=== PATIENT | male | born 1985 | race Caucasian/White ===

== ENCOUNTER 2020-07-05 21:31 | Emergency (ER) | payer SELFPAY ==
[2020-07-05 21:45] VITALS: BP 157/91; PULSE 75; RESP 18; TEMP 37; O2SAT 98; BMI 37.1
[2020-07-05 21:55] VITALS: BP 157/91; PULSE 75; RESP 18; TEMP 37; O2SAT 98
[2020-07-05] MEDS: Amoxicillin/Potassium Clav 875 MG TABLET PO (23:47)
[2020-07-05] MEDS: oxyCODONE HCl Immed Release 5 MG TABLET 10 MG PO (23:47)
--- NOTE | 2020-07-06 00:54 | ED.DENTAL ---
HPI - Dental/Oral General Chief complaint: Dental/Oral Stated complaint: dental pain Time Seen by Provider: 07/05/20 23:11 Source: patient Mode of arrival: ambulatory History of Present Illness HPI Narrative: In complaining of pain in right upper jaw from a broken tooth to the cavity supposed to see oral surgeon for tooth extraction unable to get antibiotics or pain medication Location: Tooth # (2) Related Data Previous Rx's Medication Instructions Recorded amoxicillin-pot clavulanate 1 tab PO BID #20 tab 07/05/20 [Augmentin] oxycodone 5 mg PO Q6H PRN #20 tab 07/05/20 Allergies Allergy/AdvReac Type Severity Reaction Status Date / Time acetaminophen [From Tylenol] Allergy Severe Hives Verified 07/05/20 21:48 Review of Systems Review of Systems: Yes all other systems are reviewed and are negative PMFSH Past Medical History Medical History No acute medical problems Surgical History No history of previous surgery Social History Social History Advance Directives: No Advance Directives Information Provided: Yes Physical Exam Vital Signs: Vital Signs: Last Vital Signs Temp 98.6 F 07/05/20 21:55 Pulse 75 07/05/20 21:55 Resp 18 07/05/20 21:55 BP 157/91 H 07/05/20 21:55 Pulse Ox 98 07/05/20 21:55 Body Mass Index 37.1 Const: General: healthy appearing, comfortable and no acute distress Orientation/consciousness: patient oriented x3 HENMT: Teeth image: 1. Chipped tooth L upper 2nd molar tender no gum swelling Eyes: General: appearance normal, both eyes and all related structures Neck: Neck: Yes normal visual inspection and Yes no lymphadenopathy Resp: Effort & Inspection: normal respiratory effort Cardio: Rate: regular rate Rhythm: regular rhythm Skin: General skin exam: no rashes or lesions noted Neuro: General: patient oriented x3 Discharge Plan Discharge Clinical Impression: Dental caries Patient Disposition: Home, Self-Care Instructions: Toothache (ED) Additional Instructions: Take antibiotic and pain medicine as advised. Follow-up with your dentist as planned Prescriptions: New amoxicillin-pot clavulanate [Augmentin] 875-125 mg tablet 1 tab PO BID Qty: 20 RF: 0 oxycodone 5 mg tablet 5 mg PO Q6H PRN (Reason: Pain, Moderate) Qty: 20 RF: 0 Interventions: ED Discharge Assessment Last Done: 07/06/20 00:06 Discharge Date/Time: 07/05/20 23:49
== END 2020-07-05 23:49 | disposition home or self-care (01) ==
PROVIDERS: Emergency Provider Internal Medicine
DX: K02.9 Dental caries, unspecified (principal); Z79.899 Other long term (current) drug therapy
CPT/HCPCS: 99283

== ENCOUNTER 2020-08-04 18:48 | Emergency (ER) | payer SELFPAY ==
[2020-08-04 19:13] VITALS: BP 137/87; PULSE 77; RESP 16; TEMP 36.8; O2SAT 100; BMI 32.3
--- NOTE | 2020-08-04 19:54 | ED_ITS ---
HPI - Dental/Oral General Chief complaint: Dental/Oral Stated complaint: tooth ache Time Seen by Provider: 08/04/20 19:54 History of Present Illness HPI Narrative: Patient complains of worsening right upper tooth pain from a broken tooth that is been hurting for several weeks getting worse and worse, he had 1 prior visit given antibiotics and it eased off but now the pain is back, he has an appointment with a dentist to remove the tooth in 2 weeks Location: Tooth # Related Data Previous Rx's Medication Instructions Recorded amoxicillin-pot clavulanate 1 tab PO BID #20 tab 07/05/20 [Augmentin] oxycodone 5 mg PO Q6H PRN #20 tab 07/05/20 ibuprofen 600 mg PO Q6H PRN #20 tab 08/04/20 oxycodone 5 mg PO Q6H PRN #14 tab 08/04/20 penicillin V potassium 500 mg PO QID 7 Days #28 tab 08/04/20 Allergies Allergy/AdvReac Type Severity Reaction Status Date / Time acetaminophen [From Tylenol] Allergy Severe Hives Verified 07/05/20 21:48 Review of Systems Review of Systems: Positive for right upper tooth pain Neck is no fever no chills no dizziness no weakness no difficulty breathing or swallowing no swelling under the tongue no rash no facial swelling Yes all other systems are reviewed and are negative PMFSH Past Medical History Source: nursing notes reviewed Medical History No acute medical problems Surgical History No history of previous surgery Social History Social History Advance Directives: No Advance Directives Information Provided: No Physical Exam Vital Signs: Vital Signs: Last Vital Signs Temp 98.2 F 08/04/20 19:13 Pulse 77 08/04/20 19:13 Resp 16 08/04/20 19:13 BP 137/87 08/04/20 19:13 Pulse Ox 100 08/04/20 19:13 Body Mass Index 32.3 General appearance no acute distress The ears are clear without redness to tympanic membrane The oral exam the pharynx is clear mucous membranes are moist Dental exam the right upper molar is decayed and tender, there is no fluctuant abscess on the gum there is no trismus there is no swelling under the tongue there is no impairment of breathing and swallowing, no trismus, voice is normal Pharynx is not red, no swelling, no exudate Respiratory no distress Skin no rash Course Course Course Narrative: Patient is advised to call for sooner dental appointment and h e will follow up with dentist, no fever now no systemic illness Discharge Plan Discharge Clinical Impression: Dental caries Patient Disposition: Home, Self-Care Additional Instructions: Follow as scheduled with dentist Prescriptions: New oxycodone 5 mg tablet 5 mg PO Q6H PRN (Reason: pain) Qty: 14 RF: 0 penicillin V potassium 500 mg tablet 500 mg PO QID 7 Days Qty: 28 RF: 0 ibuprofen 600 mg tablet 600 mg PO Q6H PRN (Reason: pain) Qty: 20 RF: 0 No Action amoxicillin-pot clavulanate [Augmentin] 875-125 mg tablet 1 tab PO BID Qty: 20 RF: 0 oxycodone 5 mg tablet 5 mg PO Q6H PRN (Reason: Pain, Moderate) Qty: 20 RF: 0 Interventions: ED Discharge Assessment Last Done: 08/04/20 20:29 Discharge Date/Time: 08/04/20 20:35
[2020-08-04] MEDS: Ibuprofen 600 MG TABLET PO (20:08)
[2020-08-04] MEDS: Penicillin V Potassium 250 MG TABLET 500 MG PO (20:08)
== END 2020-08-04 20:35 | disposition home or self-care (01) ==
PROVIDERS: Emergency Provider Internal Medicine
DX: K08.89 Other specified disorders of teeth and supporting structures (principal); K02.9 Dental caries, unspecified
CPT/HCPCS: 99283; 99284

== ENCOUNTER 2021-02-15 02:22 | Emergency (ER) | payer SELFPAY ==
[2021-02-15 02:22] VITALS: BP 116/73; PULSE 69; RESP 16; TEMP 36.6; O2SAT 97; BMI 31.4
--- NOTE | 2021-02-15 02:55 | ED_ITS ---
HPI - Dental/Oral General Chief complaint: Dental/Oral Stated complaint: dental pain Time Seen by Provider: 02/15/21 02:55 Source: patient Mode of arrival: ambulatory History of Present Illness HPI Narrative: 36-year-old male without significant past medical history presents with toothache this is been ongoing for a few days without associated fever, chills, and without difficulty with breathing or swallowing. Teeth map: 1. Broken tooth, swollen gum Related Data Previous Rx's Medication Instructions Recorded amoxicillin 875 mg-potassium 1 tab PO BID #20 tab 07/05/20 clavulanate 125 mg tablet (Augmentin) oxycodone 5 mg tablet 5 mg PO Q6H PRN #20 tab 07/05/20 ibuprofen 600 mg tablet 600 mg PO Q6H PRN #20 tab 08/04/20 oxycodone 5 mg tablet 5 mg PO Q6H PRN #14 tab 08/04/20 penicillin V potassium 500 mg 500 mg PO QID 7 Days #28 tab 08/04/20 tablet amoxicillin 875 mg-potassium 1 tab PO Q12H 5 Days #10 tab 02/15/21 clavulanate 125 mg tablet (Augmentin) ketorolac 10 mg tablet 10 mg PO Q6H PRN 5 Days #20 tab 02/15/21 Allergies Allergy/AdvReac Type Severity Reaction Status Date / Time acetaminophen [From Tylenol] Allergy Severe Hives Verified 07/05/20 21:48 Review of Systems Review of Systems: Pertinent positives and negatives as stated in HPI 10 point review systems is otherwise negative. [facility] Past Medical History Source: nursing notes reviewed Medical History No acute medical problems Surgical History No history of previous surgery Social History Social History Advance Directives: No Advance Directives Information Provided: No Physical Exam Vital Signs: Vital Signs: Last Vital Signs Temp 97.8 F 02/15/21 02:22 Pulse 69 02/15/21 02:22 Resp 16 02/15/21 02:22 BP 116/73 02/15/21 02:22 Pulse Ox 97 02/15/21 02:22 BMI result Body Mass Index 31.4 VITAL SIGNS: Reviewed. GENERAL: Well developed, well nourished, in no acute distress. HEAD: Normocephalic/atraumatic EYES: PERRLA, EOMI OROPHARYNX: no oral lesions noted, posterior pharynx clear, dental caries noted at the upper right molar with half of the molar missing and surrounding gum edema, no trismus NECK: Supple, no adenopathy LUNGS: Normal breath sounds. No adventitious sounds or accessory muscle use. SpO2<97> CARDIOVASCULAR: Regular rate and rhythm without noted murmurs ABDOMEN: Soft, non-tender, non-distended with bowel sounds. NEUROLOGIC: Alert and oriented x 4. Course Course Course Narrative: 36-year-old male with history and clinical presentation consistent with broken tooth and surrounding edema and dental thong. Patient was treated with initial antibiotics, combination analgesics as well as topical anesthetic. He was otherwise discharged home in stable condition. Discharge Plan Discharge Clinical Impression: Toothache, Dental abscess Patient Disposition: Home, Self-Care Instructions: Dental Abscess (ED), Toothache (ED) Additional Instructions: 1. Complete the entire course of antibiotics. 2. Establish care with a primary care provider. Keep the scheduled appointment with your dentist. Return to the ER for worsening symptoms. Prescriptions: New amoxicillin-pot clavulanate [Augmentin] 875-125 mg tablet 1 tab PO Q12H 5 Days Qty: 10 RF: 0 ketorolac 10 mg tablet 10 mg PO Q6H PRN (Reason: pain) 5 Days Qty: 20 RF: 0 No Action oxycodone 5 mg tablet 5 mg PO Q6H PRN (Reason: pain) Qty: 14 RF: 0 penicillin V potassium 500 mg tablet 500 mg PO QID 7 Days Qty: 28 RF: 0 ibuprofen 600 mg tablet 600 mg PO Q6H PRN (Reason: pain) Qty: 20 RF: 0 amoxicillin-pot clavulanate [Augmentin] 875-125 mg tablet 1 tab PO BID Qty: 20 RF: 0 oxycodone 5 mg tablet 5 mg PO Q6H PRN (Reason: Pain, Moderate) Qty: 20 RF: 0
[2021-02-15] MEDS: Ketorolac Tromethamine 15 MG/ML VIAL IM (03:35)
[2021-02-15] MEDS: Amoxicillin/Potassium Clav 875 MG TABLET PO (03:36)
[2021-02-15 03:39] VITALS: BP 145/92; PULSE 67; RESP 16; O2SAT 98
== END 2021-02-15 03:44 | disposition home or self-care (01) ==
PROVIDERS: Emergency Provider Student in an Organized Health Care Education/Training Program
DX: K04.7 Periapical abscess without sinus (principal); K08.89 Other specified disorders of teeth and supporting structures
CPT/HCPCS: 96372; 99283; 99284; J1885

== ENCOUNTER 2021-04-16 03:20 | Emergency (ER) | payer SELFPAY ==
[2021-04-16 03:27] VITALS: BP 148/94; PULSE 62; RESP 16; TEMP 36.3; O2SAT 99; BMI 32.3
--- NOTE | 2021-04-16 03:39 | ED_ITS ---
HPI - Dental/Oral General Chief complaint: Dental/Oral Stated complaint: Dental pain Time Seen by Provider: 04/16/21 03:39 Source: patient Mode of arrival: ambulatory Limitations: no limitations History of Present Illness HPI Narrative: Patient history of dental cavities been here multiple times for toothache comes here with same which has a broken tooth right upper 1st molar Related Data Previous Rx's Medication Instructions Recorded amoxicillin 875 mg-potassium 1 tab PO BID #20 tab 07/05/20 clavulanate 125 mg tablet (Augmentin) oxycodone 5 mg tablet 5 mg PO Q6H PRN #20 tab 07/05/20 ibuprofen 600 mg tablet 600 mg PO Q6H PRN #20 tab 08/04/20 oxycodone 5 mg tablet 5 mg PO Q6H PRN #14 tab 08/04/20 penicillin V potassium 500 mg 500 mg PO QID 7 Days #28 tab 08/04/20 tablet amoxicillin 875 mg-potassium 1 tab PO Q12H 5 Days #10 tab 02/15/21 clavulanate 125 mg tablet (Augmentin) ketorolac 10 mg tablet 10 mg PO Q6H PRN 5 Days #20 tab 02/15/21 amoxicillin 875 mg-potassium 1 tab PO BID #20 tab 04/16/21 clavulanate 125 mg tablet (Augmentin) oxycodone 5 mg tablet 5 mg PO Q6H PRN #20 tab 04/16/21 Allergies Allergy/AdvReac Type Severity Reaction Status Date / Time acetaminophen [From Allergy Severe Hives Verified 04/16/21 03:30 Tylenol] Review of Systems Verdana 4l Review of Systems: Yes all other systems are reviewed and Verdana 4d are negative PMFSH Past Medical History Medical History No acute medical problems Surgical History No history of previous surgery Social History Social History Advance Directives: No Physical Exam Verdana 4l Vital Signs: Verdana 4d Verdana 4d Vital Signs: Verdana 4d Verdana 4Bd Last Vital Signs Verdana 4d Personal Companion New 4d Personal Companion New 4d Temp 97.3 F 04/16/21 03:27 Personal Companion New 4d Pulse 62 04/16/21 03:27 Personal Companion New 4d Resp 16 04/16/21 03:27 BP 148/94 H 04/16/21 03:27 Pulse Ox 99 04/16/21 03:27 BMI result Body Mass Index 32.3 Const: General: comfortable and no acute distress Orientation/consciousness: patient oriented x3 HENMT: Teeth image: 1. Broken carried tooth, tender no significant gum swelling Resp: Effort & Inspection: normal respiratory effort Neuro: General: patient oriented x3 Discharge Plan Discharge Clinical Impression: Dental caries Patient Disposition: Home, Self-Care Instructions: Toothache (ED) Additional Instructions: Take medication as prescribed follow with dentist as scheduled Prescriptions: New amoxicillin-pot clavulanate [Augmentin] 875-125 mg tablet 1 tab PO BID Qty: 20 0RF oxycodone 5 mg tablet 5 mg PO Q6H PRN (Reason: Pain, Moderate) Qty: 20 0RF No Action oxycodone 5 mg tablet 5 mg PO Q6H PRN (Reason: pain) Qty: 14 0RF Rx Instructions: Narcotic, no driving for 6 hours after taking this medication penicillin V potassium 500 mg tablet 500 mg PO QID 7 Days Qty: 28 0RF ibuprofen 600 mg tablet 600 mg PO Q6H PRN (Reason: pain) Qty: 20 0RF amoxicillin-pot clavulanate [Augmentin] 875-125 mg tablet 1 tab PO BID Qty: 20 0RF oxycodone 5 mg tablet 5 mg PO Q6H PRN (Reason: Pain, Moderate) Qty: 20 0RF amoxicillin-pot clavulanate [Augmentin] 875-125 mg tablet 1 tab PO Q12H 5 Days Qty: 10 0RF ketorolac 10 mg tablet 10 mg PO Q6H PRN (Reason: pain) 5 Days Qty: 20 0RF Rx Instructions: Patient received Toradol in the emergency room.
[2021-04-16] MEDS: Amoxicillin/Potassium Clav 875 MG TABLET PO (03:54)
[2021-04-16] MEDS: oxyCODONE HCl Immed Release 5 MG TABLET 10 MG PO (03:54)
== END 2021-04-16 03:57 | disposition home or self-care (01) ==
PROVIDERS: Emergency Provider Internal Medicine
DX: K08.89 Other specified disorders of teeth and supporting structures (principal); K02.9 Dental caries, unspecified
CPT/HCPCS: 99283

== ENCOUNTER 2021-06-07 22:39 | Emergency (ER) | payer SELFPAY ==
[2021-06-07 22:53] VITALS: BP 147/91; PULSE 85; RESP 18; TEMP 36.6; O2SAT 98; BMI 34.4
--- NOTE | 2021-06-08 01:01 | ED.DENTAL ---
HPI - Dental/Oral General Chief complaint: Dental/Oral Stated complaint: dental pain Time Seen by Provider: 06/08/21 01:01 Source: patient Mode of arrival: ambulatory History of Present Illness HPI Narrative: 36-year-old male with repeat visit for dental pain stating that he can not get to an appointment because of work, sometimes because of transportation. Reporting significant pain without fever, chills or difficulty swallowing. Teeth map: 1. Huge cavity Related Data Previous Rx's Medication Instructions Recorded amoxicillin 875 mg-potassium 1 tab PO BID #20 tab 07/05/20 clavulanate 125 mg tablet (Augmentin) oxycodone 5 mg tablet 5 mg PO Q6H PRN #20 tab 07/05/20 ibuprofen 600 mg tablet 600 mg PO Q6H PRN #20 tab 08/04/20 oxycodone 5 mg tablet 5 mg PO Q6H PRN #14 tab 08/04/20 penicillin V potassium 500 mg 500 mg PO QID 7 Days #28 tab 08/04/20 tablet amoxicillin 875 mg-potassium 1 tab PO Q12H 5 Days #10 tab 02/15/21 clavulanate 125 mg tablet (Augmentin) ketorolac 10 mg tablet 10 mg PO Q6H PRN 5 Days #20 tab 02/15/21 amoxicillin 875 mg-potassium 1 tab PO BID #20 tab 04/16/21 clavulanate 125 mg tablet (Augmentin) oxycodone 5 mg tablet 5 mg PO Q6H PRN #20 tab 04/16/21 amoxicillin 875 mg-potassium 1 tab PO Q12H 7 Days #14 tab 06/08/21 clavulanate 125 mg tablet ketorolac 10 mg tablet 10 mg PO Q6H PRN 5 Days #20 tab 06/08/21 Allergies Allergy/AdvReac Type Severity Reaction Status Date / Time acetaminophen [From Tylenol] Allergy Severe Hives Verified 06/07/21 22:53 Review of Systems Review of Systems: Pertinent positives and negatives as stated in HPI 10 point review of systems otherwise negative. PMF Past Medical History Source: nursing notes reviewed Medical History No acute medical problems Surgical History No history of previous surgery Social History Social History Advance Directives: No Advance Directives Information Provided: No Physical Exam Vital Signs: Vital Signs: Last Vital Signs Temp 97.9 F 06/07/21 22:53 Pulse 85 06/07/21 22:53 Resp 18 06/07/21 22:53 BP 147/91 H 06/07/21 22:53 Pulse Ox 98 06/07/21 22:53 BMI result Body Mass Index 34.4 VITAL SIGNS: Reviewed. GENERAL: Well developed, well nourished, in no acute distress. HEAD: Normocephalic/atraumatic EYES: PERRLA, EOMI EARS: Ext canals without abnormality, TMs non-bulging and non-erythematous OROPHARYNX: no oral lesions noted, posterior pharynx clear, right upper molar with obvious defect and mild gingival swelling, no trismus NECK: Supple, no adenopathy LUNGS: Normal breath sounds. No adventitious sounds or accessory muscle use. SpO2<98> CARDIOVASCULAR: Regular rate and rhythm without noted murmurs ABDOMEN: Soft, non-tender, non-distended with bowel sounds. NEUROLOGIC: Alert and oriented x 4 Course Course Course Narrative: 36-year-old male with history and clinical presentation consistent with dental pain and mild dental infection. Patient received combination analgesics as well as initial antibiotics and was strongly counseled on following up with a dentist for definitive treatment. Discharge Plan Discharge Clinical Impression: Toothache, Dental caries Patient Disposition: Home, Self-Care Instructions: Toothache (ED) Additional Instructions: 1. Go to a dentist. 2. Complete the entire course of antibiotics. Utilize the topical numbing agent that you have purchased. Prescriptions: New ketorolac 10 mg tablet 10 mg PO Q6H PRN (Reason: pain) 5 Days Qty: 20 0RF Rx Instructions: 1. Stop all ibuprofen/ Motrin/ Aleve /Naprosyn. 2. Patient received Toradol in the emergency room. amoxicillin-pot clavulanate 875-125 mg tablet 1 tab PO Q12H 7 Days Qty: 14 0RF No Action oxycodone 5 mg tablet 5 mg PO Q6H PRN (Reason: pain) Qty: 14 0RF Rx Instructions: Narcotic, no driving for 6 hours after taking this medication penicillin V potassium 500 mg tablet 500 mg PO QID 7 Days Qty: 28 0RF ibuprofen 600 mg tablet 600 mg PO Q6H PRN (Reason: pain) Qty: 20 0RF amoxicillin-pot clavulanate [Augmentin] 875-125 mg tablet 1 tab PO BID Qty: 20 0RF oxycodone 5 mg tablet 5 mg PO Q6H PRN (Reason: Pain, Moderate) Qty: 20 0RF amoxicillin-pot clavulanate [Augmentin] 875-125 mg tablet 1 tab PO Q12H 5 Days Qty: 10 0RF ketorolac 10 mg tablet 10 mg PO Q6H PRN (Reason: pain) 5 Days Qty: 20 0RF Rx Instructions: Patient received Toradol in the emergency room. amoxicillin-pot clavulanate [Augmentin] 875-125 mg tablet 1 tab PO BID Qty: 20 0RF oxycodone 5 mg tablet 5 mg PO Q6H PRN (Reason: Pain, Moderate) Qty: 20 0RF
[2021-06-08] MEDS: Amoxicillin/Potassium Clav 875 MG TABLET PO (01:17)
[2021-06-08] MEDS: Ketorolac Tromethamine 15 MG/ML VIAL IM (01:17)
== END 2021-06-08 01:32 | disposition home or self-care (01) ==
PROVIDERS: Emergency Provider Student in an Organized Health Care Education/Training Program
DX: K02.9 Dental caries, unspecified (principal); K08.89 Other specified disorders of teeth and supporting structures
CPT/HCPCS: 96372; 99284; J1885

== ENCOUNTER 2021-10-13 07:52 | Emergency (ER) | payer SELFPAY ==
[2021-10-13 08:09] VITALS: BP 134/70; PULSE 59; RESP 16; TEMP 36.6; O2SAT 98; BMI 29.1
--- NOTE | 2021-10-13 10:26 | ED_ITS ---
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, he denies any loss of vision, it hurts him to open his eye Related Data Previous Rx's Medication Instructions Recorded amoxicillin 875 mg-potassium 1 tab PO BID #20 tabs 07/05/20 clavulanate 125 mg tablet (Augmentin) oxycodone 5 mg tablet 5 mg PO Q6H PRN Pain, Moderate #20 07/05/20 tabs ibuprofen 600 mg tablet 600 mg PO Q6H PRN pain #20 tabs 08/04/20 oxycodone 5 mg tablet 5 mg PO Q6H PRN pain #14 tabs 08/04/20 penicillin V potassium 500 mg 500 mg PO QID 7 days #28 tabs 08/04/20 tablet amoxicillin 875 mg-potassium 1 tab PO Q12H 5 days #10 tabs 02/15/21 clavulanate 125 mg tablet (Augmentin) ketorolac 10 mg tablet 10 mg PO Q6H PRN pain 5 days #20 02/15/21 tabs amoxicillin 875 mg-potassium 1 tab PO BID #20 tabs 04/16/21 clavulanate 125 mg tablet (Augmentin) oxycodone 5 mg tablet 5 mg PO Q6H PRN Pain, Moderate #20 04/16/21 tabs amoxicillin 875 mg-potassium 1 tab PO Q12H 7 days #14 tabs 06/08/21 clavulanate 125 mg tablet ketorolac 10 mg tablet 10 mg PO Q6H PRN pain 5 days #20 06/08/21 tabs acetaminophen 500 mg tablet 1,000 mg PO QID PRN pain #30 tabs 10/13/21 erythromycin 5 mg/gram (0.5 %) eye 0.5 inch ophthalmic (eye) TID 5 10/13/21 ointment days #3.5 grams ibuprofen 600 mg tablet 600 mg PO Q6H PRN pain #20 tabs 10/13/21 Allergies Allergy/AdvReac Type Severity Reaction Status Date / Time acetaminophen [From Tylenol] Allergy Severe Hives Verified 06/07/21 22:53 Review of Systems Review of Systems: Positive for right eye pain Negatives are no fever no chills no dizziness no headache no neck pain no stiff neck no chest pain or shortness of breath no vomiting no loss of vision no yellow discharge no photophobia Yes all other systems are reviewed and are nega tive [facility] Past Medical History Source: nursing notes reviewed Medical History No acute medical problems Surgical History No history of previous surgery Social History Social History Advance Directives: No Advance Directives Information Provided: No Physical Exam Vital Signs: Vital Signs: Last Vital Signs Temp 97.9 F 10/13/21 08:09 Pulse 59 10/13/21 08:09 Resp 16 10/13/21 08:09 BP 134/70 10/13/21 08:09 Pulse Ox 98 10/13/21 08:09 O2 Del Method 10/13/21 08:09 BMI result Body Mass Index 29.1 General appearance no acute distress but uncomfortable Eyes the pupils are equal round reactive to light, extraocular motions are intact The visual acuity is 20 50 in the right eye without the contact lens and 2020 in the left eye with the contact lens The right eye is tearing with some watery discharge no yellow or thick discharge, after tetracaine the pain resolved and patient was comfortable and was able to open the eye, with staining there was a small corneal abrasion in the 5 o'clock position, no foreign body was identified Neck is supple Respiratory no distress Extremities full range of motion x4 Skin no rash Course Course Course Narrative: Patient with 1 day of eye pain and corneal abrasion seen on exam is treated with erythromycin and advised no placement of contact in his eye for a week, he does have an eye doctor to follow with on Friday if not better Discharge Plan Discharge Clinical Impression: Corneal abrasion Patient Disposition: Home, Self-Care Additional Instructions: Exam showed an abrasion in the right eye, so use the antibiotic ointment as directed You can use Tylenol and Motrin for discomfort The symptoms usually improve quite a bit with in 2 days If on Friday you are still having discomfort follow with your eye doctor or Dr. Bettencourt Return to the ER any time for worsening pain, loss of vision, thick discharge from the eye, any worse condition or any concerns Prescriptions: New acetaminophen 500 mg tablet 1,000 mg PO QID PRN (Reason: pain) Qty: 30 0RF ibuprofen 600 mg tablet 600 mg PO Q6H PRN (Reason: pain) Qty: 20 0RF erythromycin 5 mg/gram (0.5 %) ointment 0.5 inch ophthalmic (eye) TID 5 Days Qty: 3.5 0RF No Action oxycodone 5 mg tablet 5 mg PO Q6H PRN (Reason: pain) Qty: 14 0RF Rx Instructions: Narcotic, no driving for 6 hours after taking this medication penicillin V potassium 500 mg tablet 500 mg PO QID 7 Days Qty: 28 0RF ibuprofen 600 mg tablet 600 mg PO Q6H PRN (Reason: pain) Qty: 20 0RF amoxicillin-pot clavulanate [Augmentin] 875-125 mg tablet 1 tab PO BID Qty: 20 0RF oxycodone 5 mg tablet 5 mg PO Q6H PRN (Reason: Pain, Moderate) Qty: 20 0RF amoxicillin-pot clavulanate [Augmentin] 875-125 mg tablet 1 tab PO Q12H 5 Days Qty: 10 0RF ketorolac 10 mg tablet 10 mg PO Q6H PRN (Reason: pain) 5 Days Qty: 20 0RF Rx Instructions: Patient received Toradol in the emergency room. amoxicillin-pot clavulanate [Augmentin] 875-125 mg tablet 1 tab PO BID Qty: 20 0RF oxycodone 5 mg tablet 5 mg PO Q6H PRN (Reason: Pain, Moderate) Qty: 20 0RF ketorolac 10 mg tablet 10 mg PO Q6H PRN (Reason: pain) 5 Days Qty: 20 0RF Rx Instructions: 1. Stop all ibuprofen/ Motrin/ Aleve /Naprosyn. 2. Patient received Toradol in the emergency room. amoxicillin-pot clavulanate 875-125 mg tablet 1 tab PO Q12H 7 Days Qty: 14 0RF
[2021-10-13] MEDS: Tetracaine HCl/PF 0.5% Oph Sol 4 ML DROPS 1 DROP EYE-RIGHT (10:52)
[2021-10-13] MEDS: Erythromycin Base 0.5% Oph Oin 1 GM TUBE 1 CM EYE-RIGHT (10:52)
[2021-10-13] MEDS: Fluorescein Sodium STRIP 1 STRIP EYE-RIGHT (10:52)
== END 2021-10-13 10:53 | disposition home or self-care (01) ==
PROVIDERS: Emergency Provider Emergency Medicine
DX: S05.01XA Injury of conjunctiva and corneal abrasion without foreign body, right eye, initial encounter (principal); X58.XXXA Exposure to other specified factors, initial encounter; H57.11 Ocular pain, right eye; Y93.9 Activity, unspecified; Y92.9 Unspecified place or not applicable; Y99.9 Unspecified external cause status
CPT/HCPCS: 99282; 99283

== ENCOUNTER 2022-09-02 09:44 | Emergency (ER) | payer MEDICAID, SELFPAY ==
[2022-09-02 09:45] VITALS: BP 135/76; PULSE 73; TEMP 36.9; O2SAT 96; BMI 34.0
--- NOTE | 2022-09-02 10:22 | ED.BACK ---
HPI - Back Pain/Injury General Chief Complaint: Back Pain/Injury Stated Complaint: Lower back pain Time Seen by Provider: 09/02/22 10:18 Source: patient, RN notes reviewed and old records reviewed Mode of arrival: ambulatory History of Present Illness HPI Narrative: 37-year-old male with past medical history renal stones, presenting to the ED complaining of right-sided back pain s/p caring 2 large bags of dog food yesterday. Denies known injury/trauma or fall, radiation of pain hematuria/dysuria, numbness, tingling, weakness, urinary incontinence/retention. Pain worse with movement. Denies fever. Has not tried anything for pain MD elicited complaint: back pain Related Data Previous Rx's Medication Instructions Recorded amoxicillin 875 mg-potassium 1 tab PO BID #20 tabs 07/05/20 clavulanate 125 mg tablet (Augmentin) oxycodone 5 mg tablet 5 mg PO Q6H PRN Pain, Moderate #20 07/05/20 tabs ibuprofen 600 mg tablet 600 mg PO Q6H PRN pain #20 tabs 08/04/20 oxycodone 5 mg tablet 5 mg PO Q6H PRN pain #14 tabs 08/04/20 penicillin V potassium 500 mg 500 mg PO QID 7 days #28 tabs 08/04/20 tablet amoxicillin 875 mg-potassium 1 tab PO Q12H 5 days #10 tabs 02/15/21 clavulanate 125 mg tablet (Augmentin) ketorolac 10 mg tablet 10 mg PO Q6H PRN pain 5 days #20 02/15/21 tabs amoxicillin 875 mg-potassium 1 tab PO BID #20 tabs 04/16/21 clavulanate 125 mg tablet (Augmentin) oxycodone 5 mg tablet 5 mg PO Q6H PRN Pain, Moderate #20 04/16/21 tabs amoxicillin 875 mg-potassium 1 tab PO Q12H 7 days #14 tabs 06/08/21 clavulanate 125 mg tablet ketorolac 10 mg tablet 10 mg PO Q6H PRN pain 5 days #20 06/08/21 tabs acetaminophen 500 mg tablet 1,000 mg PO QID PRN pain #30 tabs 10/13/21 erythromycin 5 mg/gram (0.5 %) eye 0.5 inch ophthalmic (eye) TID 5 10/13/21 ointment days #3.5 grams ibuprofen 600 mg tablet 600 mg PO Q6H PRN pain #20 tabs 10/13/21 cyclobenzaprine 5 mg tablet 5 mg PO Q8H PRN pain (scale score 09/02/22 7-10) 5 days #14 tabs lidocaine 5 % topical patch 1 patch topical DAILY PRN pain #30 09/02/22 (Lidoderm) ea naproxen 500 mg tablet 500 mg PO BID PRN pain 10 days #20 09/02/22 tabs Allergies Allergy/AdvReac Type Severity Reaction Status Date / Time acetaminophen [From Tylenol] Allergy Severe Hives Verified 06/07/21 22:53 Review of Systems Review of Systems: Constitutional: No Fever, No Chills ENT/Mouth: No Ear Pain, No Nasal Congestion, No sore throat, No Rhinorrhea, No Swallowing Difficulty Cardiovascular: No Chest Pain, No SOB Respiratory: No Cough, No Sputum Gastrointestinal: No Nausea, No Vomiting, No Diarrhea, No Constipation, No Abdominal pain Genitourinary: No Dysuria, No Urinary Frequency, No Hematuria, No Urinary Incontinence/retention, No Flank Pain Musculoskeletal: + joint pain, No Myalgias, No Joint Swelling Skin: No Skin Lesions, No rash Neuro: No Weakness, No Numbness, No Paresthesias Yes all other systems are reviewed and are negative Constitutional: Constitutional: Reports as per [facility] Past Medical History Attestation statement: The following information was validated with the patient. Source: old records reviewed Medical History No acute medical problems Surgical History No history of previous surgery Social History Social History Alcohol intake: never Smoked in Last 30 Days: Yes Use of substances other than those prescribed or required for medical reasons: No Advance Directives: No Advance Directives Information Provided: No Physical Exam Vital Signs: Vital Signs: Last Vital Signs Temp 98.5 F 09/02/22 11:01 Pulse 58 09/02/22 11:01 Resp 20 09/02/22 11:01 BP 134/81 09/02/22 11:01 Pulse Ox 95 09/02/22 11:01 O2 Del Method Room Air 09/02/22 11:01 BMI result Body Mass Index 34.0 Const: General: cooperative, healthy appearing and no acute distress Orientation/consciousness: patient oriented x3 Limitations: no limitations HEENT: Head: Yes normal to inspection and Yes atraumatic Ears: hearing grossly normal bilaterally General nose exam: Normal external nose present Face and sinus: Yes normal facial exam Eyes: General: appearance normal, both eyes and all related structures EOM: EOMs intact bilaterally Neck: Neck: Yes normal visual inspection and Yes no meningeal signs Resp: Effort & Inspection: normal respiratory effort and no respiratory distress Cardio: Rate: regular rate GI: Inspection: Yes normal to inspection Palpation (GI): Soft to palpation, nontender, no guarding and not rigid : General: Yes no CVA tenderness Back/Spine/Pelvis: Other: No midline cervical/thoracic/lumbar spinous tenderness/step-off or deformity. + right-sided paraspinal/MSK thoracic and lumbar tenderness to palpation reproducing subjective complaint. No erythema/ecchymosis or flail chest. Back: no CVA tenderness Skin: Rashes: no rashes Wounds: no wounds Neuro: Other: Strength intact throughout. No saddle anesthesia. Sensation intact to light touch. Neurovascular intact distally General: patient oriented x3, gait normal, tone normal, moves all extremities, no meningeal signs and no focal motor deficits Gait exam (Neuro): Normal gait present Motor exam (neuro): 5/5 motor strength present throughout Extrem: General: Yes normal to inspection Course Course Course Narrative: -[id number]--UA negative, no blood Results discussed with patient including worrisome signs and symptoms and strict return precautions, and when to return to the emergency department. They verbalized understanding and feel safe for discharge at this time. Medications Administered Discontinued Medications Generic Name Dose Route Start Last Admin Trade Name Freq PRN Reason Stop Dose Admin Ketorolac Tromethamine 30 mg 09/02/22 10:38 09/02/22 10:54 Ketorolac Tromethamine 30 Mg/Ml Vial IM 09/02/22 10:39 30 mg ONCE ONE Administration Lidocaine 1 patch 09/02/22 10:38 09/02/22 10:54 Lidocaine 4 % Patch Adh..Patch TRANSDERMA 09/02/22 10:39 1 patch ONCE ONE Administration Protocol Medical Decision Making Medical Decision Making MDM Narrative: 37-year-old male with past medical history renal stones, presenting to the ED complaining of right-sided back pain s/p caring 2 large bags of dog food yesterday. On exam vital signs stable, NAD, nontoxic appearing, no midline spinous tenderness throughout, reproducible right-sided MSK back pain as above. No focal neuro deficits, no red flag symptoms, ambulating with steady gait. No saddle anesthesia. Concern for MSK back strain vs spasming. Lower suspicion for renal stone/pyelo, cauda equina, cord compression, epidural abscess or dissection Plan: UA, IM Toradol, lidocaine patch Please refer to course for remaining clinical decision making, interpretation of labs/imaging results, and discussions with consultants and/or family members. Differential Diagnosis Differential Diagnoses: The differential diagnosis associated with the presentation includes As above Lab Data Labs: Lab Results 09/02/22 Range/Units 11:06 Urine Color Yellow Urine Appearance Clear Urine pH 7.5 (5.0-9.0) Ur Specific [place] 1.015 (1.005-1.025) Urine Protein Negative (Neg-Trace) mg/dL Urine Glucose (UA) Negative (Negative) mg/dL Urine Ketones Negative (Negative) mg/dL Urine Blood Negative (Negative) Urine Nitrite Negative (Negative) Ur Leukocyte Esterase Negative (Negative) External Record Review External record reviewed: Inpatient record, Office record, Outpatient record, Prior outpatient labs, Prior outpatient radiology, Primary care record and Outside ED record Tests considered The following testing was considered but not selected: As above Prescription Management I considered prescription management with: Pain Medication Discharge Plan Discharge Clinical Impression: Strain of lumbar region Patient Disposition: Home, Self-Care Instructions: Acute Low Back Pain (ED) Additional Instructions: Your pain is likely musculoskeletal Flexeril is a muscle relaxer, take at night as it makes you drowsy, do not drive, drink alcohol, or operate machinery while taking it Naproxen as an anti-inflammatory / pain medication, take with food Lidoderm patches are numbing patches, apply to painful area If symptoms persist or worsen, pain becomes unbearable, you developed urinary retention or incontinence, or weakness return to the ED Prescriptions: New lidocaine [Lidoderm] 5 % adhesive patch,medicated 1 patch topical DAILY MDD remove after 12 hours PRN (Reason: pain) Qty: 30 0RF Rx Instructions: leave on most painful area for up to 12 hrs naproxen 500 mg tablet 500 mg PO BID PRN (Reason: pain) 10 Days Qty: 20 0RF cyclobenzaprine 5 mg tablet 5 mg PO Q8H PRN (Reason: pain (scale score 7-10)) 5 Days Qty: 14 0RF No Action oxycodone 5 mg tablet 5 mg PO Q6H PRN (Reason: pain) Qty: 14 0RF Rx Instructions: Narcotic, no driving for 6 hours after taking this medication penicillin V potassium 500 mg tablet 500 mg PO QID 7 Days Qty: 28 0RF ibuprofen 600 mg tablet 600 mg PO Q6H PRN (Reason: pain) Qty: 20 0RF amoxicillin-pot clavulanate [Augmentin] 875-125 mg tablet 1 tab PO BID Qty: 20 0RF oxycodone 5 mg tablet 5 mg PO Q6H PRN (Reason: Pain, Moderate) Qty: 20 0RF amoxicillin-pot clavulanate [Augmentin] 875-125 mg tablet 1 tab PO Q12H 5 Days Qty: 10 0RF ketorolac 10 mg tablet 10 mg PO Q6H PRN (Reason: pain) 5 Days Qty: 20 0RF Rx Instructions: Patient received Toradol in the emergency room. amoxicillin-pot clavulanate [Augmentin] 875-125 mg tablet 1 tab PO BID Qty: 20 0RF oxycodone 5 mg tablet 5 mg PO Q6H PRN (Reason: Pain, Moderate) Qty: 20 0RF ketorolac 10 mg tablet 10 mg PO Q6H PRN (Reason: pain) 5 Days Qty: 20 0RF Rx Instructions: 1. Stop all ibuprofen/ Motrin/ Aleve /Naprosyn. 2. Patient received Toradol in the emergency room. amoxicillin-pot clavulanate 875-125 mg tablet 1 tab PO Q12H 7 Days Qty: 14 0RF acetaminophen 500 mg tablet 1,000 mg PO QID PRN (Reason: pain) Qty: 30 0RF ibuprofen 600 mg tablet 600 mg PO Q6H PRN (Reason: pain) Qty: 20 0RF erythromycin 5 mg/gram (0.5 %) ointment 0.5 inch ophthalmic (eye) TID 5 Days Qty: 3.5 0RF Referrals: Physician,None [Primary Care Provider] - 5 days Interventions: ED Discharge Assessment Last Done: 09/02/22 12:18 Discharge Date/Time: 09/02/22 12:18
[2022-09-02] MEDS: Ketorolac Tromethamine 30 MG/ML VIAL IM (10:54)
[2022-09-02] MEDS: Lidocaine 4 % Patch ADH..PATCH 1 PATCH TRANSDERMA (10:54)
[2022-09-02 11:01] VITALS: BP 134/81; PULSE 58; RESP 20; TEMP 36.9; O2SAT 95
[2022-09-02 11:13] LABS: Appearance Urine Clear; Color Urine Yellow; Glucose Urine UA Negative (Negative); Leukocyte Esterase Urine Negative (Negative); Nitrite Urine Negative (Negative); PH 7.5 (5.0-9.0); Specific Gravity - Urine 1.015 (1.005-1.025); Urine Blood Negative (Negative); Urine Ketones Negative (Negative); Urine Protein Negative (Neg-Trace)
== END 2022-09-02 12:18 | disposition home or self-care (01) ==
PROVIDERS: Physician Assistant; Emergency Provider Emergency Medicine
DX: S39.012A Strain of muscle, fascia and tendon of lower back, initial encounter (principal); X50.0XXA Overexertion from strenuous movement or load, initial encounter; Z87.442 Personal history of urinary calculi; Y93.89 Activity, other specified; Y92.9 Unspecified place or not applicable; Y99.9 Unspecified external cause status
CPT/HCPCS: 81003; 96372; 99284; J1885